=== PATIENT | female | born 1990 | race Caucasian/White ===

== ENCOUNTER 2021-12-30 07:36 | Emergency (ER) | payer MEDICAID ==
[~2021-12-30] VITALS: Ht 167.6 cm; Wt 105.0 kg
[2021-12-30] MEDS ORDERED: FAMOTIDINE 20MG TABLET PO ONE (08:30)
[2021-12-30] MEDS ORDERED: MAGNESIUM/ALUMINUM HYDROXIDE/SIMETHICONE 30ML UDC PO ONE (08:30)
[2021-12-30 09:06] LABS: BASOPHILS % 0.3 % (0.0-2.0); EOSINOPHILS % 1.1 % (0.0-5.0); HEMATOCRIT. 41.6 % (36.0-48.0); HEMOGLOBIN. 14.1 g/dL (12.0-16.0); LYMPHOCYTES % 21.3 % (20.0-50.0); MEAN CORPUSCULAR HEMOGLOBIN 29.7 pg (28.0-32.0); MEAN CORPUSCULAR VOLUME 87.7 fL (81.0-99.0); MEAN PLATELET VOLUME 8.7 fl (7.4-10.4); MONOCYTES % 6.1 % (2.0-8.0); NEUTROPHILS % 71.2 % (40.0-76.0); PLATELET 247 x1000/uL (130-400); RED BLOOD CELL COUNT 4.74 mill/uL (4.2-5.4); RED CELL DISTRIBUTION WIDTH 12.8 % (11.6-14.6)
[2021-12-30 09:15] LABS: CHLORIDE 107 mEq/L (98-107)
[2021-12-30 09:18] LABS: HCG SCREEN NEGATIVE
[2021-12-30 10:50] LABS: CLARITY URINE CLEAR (CLEAR); COLOR URINE YELLOW (YELLOW); KETONES URINE NEGATIVE (NEGATIVE); LEUKOCYTE ESTERASE URINE 1+ (NEGATIVE); NITRITE URINE NEGATIVE (NEGATIVE); OCCULT BLOOD URINE NEGATIVE (NEGATIVE); PH URINE 5.5 (4.5-8.0); PROTEIN URINE TRACE (NEGATIVE); SPECIFIC GRAVITY URINE 1.021 (1.005-1.030)
[2021-12-30] MEDS ORDERED: IBUP-2028 MT ×2 (12:05→12:07)
[2021-12-30] MEDS ORDERED: CEPH500C2 MT (12:07)
[2021-12-30 12:19] VITALS: BP 146/81
== END 2021-12-30 12:22 | disposition home or self-care (01) ==
LOC: ER 07:36
DX: K80.20 Calculus of gallbladder without cholecystitis without obstruction (principal)
CPT/HCPCS: 36415; 76700; 80053; 81003; 81025; 84703; 85025; 99284